=== PATIENT | male | born 1975 | race Caucasian/White ===

== ENCOUNTER 2022-08-12 19:03 | Emergency (ER) | payer BC, OTHER ==
[2022-08-12] MEDS ORDERED: Lidocaine 1% 10 ML MDV INJECT ONE (19:09)
[2022-08-12] MEDS ORDERED: Diphtheria,Pertussis(Acell),Tetanus Vaccine 0.5 ML Syringe IM ONE (19:43)
== END 2022-08-12 20:05 | disposition home or self-care (01) ==
LOC: VM.ED 19:03 → SUPCPDRO 19:03 → VM.ED 20:05
DX: S01.112A Laceration without foreign body of left eyelid and periocular area, initial encounter (principal); S80.212A Abrasion, left knee, initial encounter; Z88.5 Allergy status to narcotic agent; Z23 Encounter for immunization; W18.09XA Striking against other object with subsequent fall, initial encounter; Y92.009 Unspecified place in unspecified non-institutional (private) residence as the place of occurrence of the external cause
CPT/HCPCS: 12014; 90471; 90715; 99282-25; 99283; J3490